=== PATIENT | female | born 1990 | race Two or more races ===

== ENCOUNTER 2017-07-01 23:45 | Inpatient (IN) | payer OTHER ==
[2017-07-02] MEDS ORDERED: DEXTROSE 5%-LACTATED RINGERS 1,000 ML IV SCH ×2 (00:30→02:00)
[2017-07-02 01:37] VITALS: BMI 30.2
[2017-07-02 01:53] LABS: BASO % 0.6 % (0-2.0); EOS % 0.5 % (0-4.5); HEMATOCRIT 28.1 % (32.4-45.2); HEMOGLOBIN 9.3 GM/dL (10.7-15.3); MCH 25.4 pg (25.7-33.7); MEAN CELL VOLUME 77.1 fl (80-96); MEAN PLT VOLUME 8.4 fl (7.5-11.1); MONO % 6.6 % (3.8-10.2); NEUT % 71.3 % (42.8-82.8); PLATELET COUNT 289 K/MM3 (134-434); RBC 3.64 M/mm3 (3.60-5.2); WHITE BLOOD COUNT 6.1 K/mm3 (4.0-10.0)
[2017-07-02 02:12] LABS: INR 0.83 (0.82-1.09); PROTHROMBIN TIME (PATIENT) 9.4 SEC (9.98-11.88)
[2017-07-02 02:39] LABS: ANION GAP 11 (8-16); BLOOD UREA NITROGEN 13 mg/dL (7-18); CALCIUM 8.2 mg/dL (8.5-10.1); CHLORIDE 107 mmol/L (98-107); CO2 22 mmol/L (21-32); CREATININE 0.6 mg/dL (0.55-1.02); GLUCOSE,RANDOM 93 mg/dL (74-106); POTASSIUM 3.9 mmol/L (3.5-5.1); SODIUM 140 mmol/L (136-145)
[2017-07-02] MEDS ORDERED: PROMETHAZINE HCL 25 MG/1 ML VIAL IVPUSH ONE (06:30)
[2017-07-02] MEDS ORDERED: BUTORPHANOL TARTRATE 1 MG/ML VIAL IVPUSH ONE (06:30)
--- NOTE | 2017-07-02 08:08 | HP ---
Past Medical History - Primary Care Physician PCP:: Jian Lloyd - Admission Chief Complaint: 40.5 weeks .rom, labor History of Present Illness: 26 yo f g 1 p0 , edc by sono 06/27/17 , 40.5 weeks, c/o rom since 11 pm 07/01/17 , clear fluid , cx 2 cm 80 vx -2 mr, clear , fhr cat 1, contraction ,mild .low intensity q 2 min History Source: Patient Limitations to Obtaining History: Language Barrier - Past Medical History ...: 1 ...Para: 0 ...Term: 0 ...: 0 ...Spon : 0 ...Induced : 0 ...Multiple Gestation: 0 ...LMP: 09/20/16 ... Weeks Gestation by Dates: 40.5 ...EDC by Dates: 06/27/17 ...EDC by Sono: 06/27/17 Heme/Onc: Yes: Anemia - Past Surgical History Hx Myomectomy: No Hx Transabdominal Cerclage: No Additional Surgical History: hx of positve FFN, recived betamethasone - Smoking History Smoking history: Never smoked Have you smoked in the past 12 months: No - Alcohol/Substance Use Hx Alcohol Use: No Home Medications - Allergies Allergies/Adverse Reactions: Allergies Allergy/AdvReac Type Severity Reaction Status Date / Time No Known Allergies Allergy Verified 04/06/17 13:31 - Home Medications Home Medications: Ambulatory Orders Ferrous Sulfate [Iron] 1 tab PO DAILY 04/06/17 Vit 108/Iron/Folic AC [ One Tablet] 1 tab PO DAILY 04/06/17 Review of Systems - Review of Systems Constitutional: reports: No Symptoms Eyes: reports: No Symptoms HENT: reports: No Symptoms Neck: reports: No Symptoms Cardiovascular: reports: No Symptoms Respiratory: reports: No Symptoms Gastrointestinal: reports: No Symptoms Genitourinary: reports: No Symptoms Breasts: reports: No Symptoms Reported Musculoskeletal: reports: No Symptoms Integumentary: reports: No Symptoms Neurological: reports: No Symptoms Endocrine: reports: No Symptoms Psychiatric: reports: No Symptoms Physical Exam - Maternity Vital Signs: Vital Signs Temperature 98.1 F 07/02/17 07:00 Pulse Rate 75 07/02/17 07:00 Respiratory Rate 20 07/02/17 07:00 Blood Pressure 118/68 07/02/17 07:00 O2 Sat by Pulse Oximetry (%) Constitutional: Yes: Well Nourished, No Distress, Calm Eyes: Yes: WNL, Conjunctiva Clear, EOM Intact HENT: Yes: WNL, Atraumatic, Normocephalic Neck: Yes: WNL, Supple, Trachea Midline Cardiovascular: Yes: WNL, Regular Rate and Rhythm Breast(s): Yes: WNL - Abdominal Exam/OB Fundal Height: 40 Number of Fetuses: Single Presentation: Vertex Contractions: Yes Regularity: Regular Intensity: Mild Monitor Mode: External Heart Rate Location: [facility] Category: I Accelerations: Uniform Decelerations: None - Vaginal Exam/OB Vaginal Bleediing: No Speculum Exam: Yes (clear fluid, nitrazine positve) Dilatation (cm): 2 to 3 Effacement (%): 80 Amniotic Membrane Status: Ruptured Nitrazine Test: Positive Amniotic Fluid: Yes: Clear Presentation: Vertex/Position Station: -2 - Physical Exam Musculoskeletal: Yes: WNL Extremities: Yes: WNL Edema: LLE: Trace, RLE: Trace Deep Tendon Reflex Grade: Normal +2 - Labs Lab Results: CBC, BMP 07/02/17 01:15 07/02/17 01:15 Hemorrhage Risk Assessment - Risk Factors Medium Risk Factors: Yes: None High Risk Factors: Yes: None Risk Score: 1 Risk Level: Medium Risk Problem List - Problems (1) Post term over 40 weeks Code(s): O48.0 - POST-TERM (2) membrane rupture Code(s): TJE6985 - Assessment/Plan plan admit, fhm, pain management
[2017-07-02] MEDS ORDERED: OXYTOCIN 15 UNITS/ LR 250 ML 250 ML IVPB SCH (08:15)
[2017-07-02] MEDS ORDERED: PROMETHAZINE HCL 25 MG/1 ML VIAL ONE (11:09)
[2017-07-02] MEDS ORDERED: BUTORPHANOL TARTRATE 1 MG/ML VIAL ONE ×2 (11:09)
[2017-07-02] MEDS ORDERED: OXYTOCIN 30 UNITS in 0.9% NS 30 UNIT/500 ML INFUS.BAG IVPB ONE (14:53)
--- NOTE | 2017-07-02 15:09 | PN ---
Progress Note (short form) - Note Progress Note: cx 7 cm 80 vx 0 mr , fhr cat 1 Problem List - Problems (1) Post term over 40 weeks Code(s): O48.0 - POST-TERM (2) membrane rupture Code(s): IXM7796 -
[2017-07-02] MEDS ORDERED: OXYTOCIN 15 UNITS in 0.9% NS 15 UNIT/250 ML INFUS.BAG IVPB SCH (15:15)
[2017-07-02] MEDS ORDERED: OXYTOCIN IV SCH (16:45)
[2017-07-02] MEDS ORDERED: SODIUM CHLORIDE IV SCH (16:45)
[2017-07-02] MEDS ORDERED: BENZOCAINE 28 GM HEMORRHOIDAL OINTMENT TP PRN (18:03)
[2017-07-02] MEDS ORDERED: BENZOCAINE 20% 57 GM BOTTLE TP PRN (18:03)
[2017-07-02] MEDS ORDERED: BISACODYL 10 MG SUPP.RECT RC PRN (18:03)
[2017-07-02] MEDS ORDERED: ACETAMINOPHEN 325 MG TABLET (FP) PO PRN (18:03)
[2017-07-02] MEDS ORDERED: METHYLERGONOVINE MALEATE 0.2 MG/1 ML AMP IM PRN (18:03)
[2017-07-02] MEDS ORDERED: oxyCODONE HCL 5 MG TABLET PO PRN (18:03)
[2017-07-02] MEDS ORDERED: IBUPROFEN 600 MG TABLET (FP) PO PRN (18:03)
[2017-07-02] MEDS ORDERED: WITCH HAZEL 50% (TUCKS) 40 PAD/JAR PAD TP PRN (18:03)
[2017-07-02] MEDS ORDERED: OXYTOCIN 20 UNITS in 0.9% NS 20 UNIT/1,000 ML INFUS.BAG IV SCH (18:15)
[2017-07-02] MEDS ORDERED: D5W-LR W/ 20 UNITS OXYTOCIN 20 UNIT/1,000 ML INFUS.BAG IV SCH (18:15)
[2017-07-02] MEDS: FERROUS SO4 325 MG TABLET (FP) PO SCH (22:55)
--- NOTE | 2017-07-03 07:52 | PN ---
Post Progress Note - Subjective Subjective: no complains except cramps Post Day: 1 Type of Delivery: Vital Signs: Vital Signs Temperature 97.9 F 07/03/17 04:00 Pulse Rate 89 07/03/17 04:00 Respiratory Rate 18 07/03/17 04:00 Blood Pressure 104/64 07/03/17 04:00 O2 Sat by Pulse Oximetry (%) Breast Exam: Yes: Soft, Other (BF ). No: Engorged Uterus: Yes: Fundus Firm, Fundus below umbilicus Lochia: Yes: Rubra Lochia, amount: Moderate Extremities: Yes: Calves non-tender Perineum: Yes: Episiotomy (healing ) Activity: Ambulating - Labs Labs: CBC WBC 6.1 K/mm3 (4.0-10.0) 07/02/17 01:15 RBC 3.64 M/mm3 (3.60-5.2) D 07/02/17 01:15 Hgb 9.3 GM/dL (10.7-15.3) L D 07/02/17 01:15 Hct 28.1 % (32.4-45.2) L D 07/02/17 01:15 MCV 77.1 fl (80-96) L 07/02/17 01:15 MCH 25.4 pg (25.7-33.7) L 07/02/17 01:15 MCHC 33.0 g/dl (32.0-36.0) 07/02/17 01:15 RDW 16.0 % (11.6-15.6) H 07/02/17 01:15 Plt Count 289 K/MM3 (134-434) 07/02/17 01:15 MPV 8.4 fl (7.5-11.1) D 07/02/17 01:15 Neutrophils % 71.3 % (42.8-82.8) D 07/02/17 01:15 Lymphocytes % 21.0 % (8-40) D 07/02/17 01:15 Monocytes % 6.6 % (3.8-10.2) 07/02/17 01:15 Eosinophils % 0.5 % (0-4.5) 07/02/17 01:15 Basophils % 0.6 % (0-2.0) 07/02/17 01:15 Assessment/Plan pp stable, anemia asymptomatic plan cbc today discharge tomorrow.
[2017-07-03 07:55] LABS: BASO % 0.4 % (0-2.0); EOS % 0.1 % (0-4.5); HEMATOCRIT 22.3 % (32.4-45.2); HEMOGLOBIN 7.2 GM/dL (10.7-15.3); LYMPH % 14.4 % (8-40); MCH 25.4 pg (25.7-33.7); MCHC 32.5 g/dl (32.0-36.0); MEAN CELL VOLUME 78.1 fl (80-96); MEAN PLT VOLUME 8.1 fl (7.5-11.1); MONO % 7.3 % (3.8-10.2); NEUT % 77.8 % (42.8-82.8); PLATELET COUNT 248 K/MM3 (134-434); RBC 2.85 M/mm3 (3.60-5.2); WHITE BLOOD COUNT 11.8 K/mm3 (4.0-10.0)
[2017-07-03] MEDS: FERROUS SO4 325 MG TABLET (FP) PO SCH ×2 (09:13→22:53)
[2017-07-03] MEDS: PRENATAL VITAMINS W/ FOLIC ACID TABLET (FP) PO SCH (09:13)
[2017-07-03] MEDS ORDERED: SENNOSIDES/DOCUSATE COMBO (SENNA PLUS) TABLET (UD) PO PRN (22:00)
[2017-07-04 08:22] VITALS: BP 119/73; PULSE 90; TEMP 98.4
[2017-07-04] MEDS: FERROUS SO4 325 MG TABLET (FP) PO SCH (10:06)
[2017-07-04] MEDS: PRENATAL VITAMINS W/ FOLIC ACID TABLET (FP) PO SCH (10:07)
--- NOTE | 2017-07-04 10:21 | PN ---
Post Progress Note - Subjective Subjective: no c/o dizziness, or headache , or sob Post Day: 2 Type of Delivery: Vital Signs: Vital Signs Temperature 98.4 F 07/04/17 08:19 Pulse Rate 90 07/04/17 08:19 Respiratory Rate 20 07/04/17 08:19 Blood Pressure 119/73 07/04/17 08:19 O2 Sat by Pulse Oximetry (%) Breast Exam: Yes: Soft, Engorged Uterus: Yes: Fundus Firm, Fundus below umbilicus, Non-tender Lochia: Yes: Rubra Lochia, amount: Moderate Extremities: Yes: Calves non-tender Perineum: Yes: Episiotomy (healing, no c/o perineal soreness ) Activity: Ambulating - Labs Labs: CBC WBC 11.8 K/mm3 (4.0-10.0) H D 07/03/17 07:00 RBC 2.85 M/mm3 (3.60-5.2) L D 07/03/17 07:00 Hgb 7.2 GM/dL (10.7-15.3) L D 07/03/17 07:00 Hct 22.3 % (32.4-45.2) L D 07/03/17 07:00 MCV 78.1 fl (80-96) L 07/03/17 07:00 MCH 25.4 pg (25.7-33.7) L 07/03/17 07:00 MCHC 32.5 g/dl (32.0-36.0) 07/03/17 07:00 RDW 16.0 % (11.6-15.6) H 07/03/17 07:00 Plt Count 248 K/MM3 (134-434) 07/03/17 07:00 MPV 8.1 fl (7.5-11.1) 07/03/17 07:00 Neutrophils % 77.8 % (42.8-82.8) 07/03/17 07:00 Lymphocytes % 14.4 % (8-40) D 07/03/17 07:00 Monocytes % 7.3 % (3.8-10.2) 07/03/17 07:00 Eosinophils % 0.1 % (0-4.5) 07/03/17 07:00 Basophils % 0.4 % (0-2.0) 07/03/17 07:00 Assessment/Plan pp anemia , hemodynamically stable discuss blood transfusion versus expectant management with po iron, pnv, high iron diet .r/b/a informed pt declined transfusion Discharge today
--- NOTE | 2017-07-06 09:21 | DS ---
Physical Exam-ARTIFICIAL CANDY MAKER Vital Signs: Vital Signs Temperature 98.4 F 07/04/17 08:19 Pulse Rate 90 07/04/17 08:19 Respiratory Rate 20 07/04/17 08:19 Blood Pressure 119/73 07/04/17 08:19 O2 Sat by Pulse Oximetry (%) ....Post : Yes: Uterus firm, Uterus non-tender, Slight lochia rubra Edema: LLE: Trace, RLE: Trace Labs: CBC, BMP 07/03/17 07:00 07/02/17 01:15 Delivery - Delivery Vaginal Delivery: Spontaneous (no complication) Type of Anesthesia: Local Episiotomy/Laceration: Left Mediolateral EBL (cc): 300 Delivery, Single - Stages of Labor Date 1st Stage Initiatied: 07/02/17 Time 1st Stage Initiated: 08:30 Date 2nd Stage Initiated: 07/02/17 Time 2nd Stage Initiated: 17:00 Date of Delivery: 07/02/17 Time of Delivery: 17:42 Time Placenta Delivered: 17:55 Placenta: Yes: Spontaneous - Condition of Infant Tailor Men'S Ready To Wear/Hand Umbrella Tipper Present: No Infant Gender: Female Weight: 7 lb Position: Left, OA Total Hours ROM (Hrs/Mins): 18h 55min - 1 Minute Total Score: 9 5 Minutes Total Score: 9 - [place] Feeding Plan Initial Plan: Elected not to breastfeed exclusively throughout hospitalization Discharge Summary Reason For Visit: LABOR Procedures: Principal: Hospital Course: anemia Condition: Stable - Instructions Diet, Activity, Other Instructions: Discharge Instructions * Out of Bed * * Regular Diet, High Iron diet * Gema Care * Avoid sex for 6 weeks If you experience excessive bleeding or fever over 101 degrees, call doctor, the clinic or go to the Emergency Room. Referrals: [facility] (Edda Koch) [Outside] Disposition: HOME - Home Medications Comprehensive Discharge Medication List: Ambulatory Orders Ferrous Sulfate [Iron] 1 tab PO DAILY 04/06/17 Vit 108/Iron/Folic AC [ One Tablet] 1 tab PO DAILY 04/06/17 Acetaminophen [Tylenol .Regular Strength -] 650 mg PO Q3H PRN tablet 07/04/17 Benzocaine [Americaine 20% [place] -] 1 spray TP PRN PRN bottle 07/04/17 Ferrous Sulfate [Feosol] 325 mg PO BID #60 tab 07/04/17 Ibuprofen [Motrin -] 200 mg PO Q4H PRN tablet 07/04/17 Vitamins (Sjr) - 1 tab PO DAILY #30 tablet 07/04/17 Witch [place] 50% (Tariks) [Tucks Pads -] 1 pad TP PRN PRN pad 07/04/17
== END 2017-07-04 11:25 | disposition home or self-care (01) | DRG 560 ==
LOC: JDEL 23:45 → JLDR 07-02 00:30 → J3W 07-02 21:37
PROVIDERS: ADMIT Obstetrics & Gynecology; ATTEND Obstetrics & Gynecology
PROC: 10E0XZZ Delivery of Products of Conception, External Approach (ICD-10-PCS; principal; 2017-07-02)
PROC: 0W8NXZZ Division of Female Perineum, External Approach (ICD-10-PCS; 2017-07-02)
DX: O48.0 Post-term pregnancy (principal); O99.013 Anemia complicating pregnancy, third trimester; D64.9 Anemia, unspecified; Z3A.40 40 weeks gestation of pregnancy; Z37.0 Single live birth
CPT/HCPCS: 36415; 59409; 80048; 85025; 85610; 85730; 86593; 86850; 86900; 86901

== ENCOUNTER 2018-12-26 17:50 | Inpatient (IN) | payer OTHER ==
[2018-12-26] MEDS ORDERED: LACTATED RINGERS SOLUTION 1,000 ML IV SCH (18:20)
[2018-12-26] MEDS ORDERED: AMPICILLIN SODIUM 2 GM VIAL IVPB ONE (18:20)
[2018-12-26] MEDS ORDERED: OXYTOCIN 20 UNITS in 0.9% NS 20 UNIT/1,000 ML INFUS.BAG IV ONE (18:24)
[2018-12-26] MEDS ORDERED: AMPICILLIN SODIUM 2 GM VIAL ONE (18:25)
[2018-12-26 18:36] VITALS: BMI 29.0
[2018-12-26] MEDS ORDERED: LIDOCAINE HCL 1% PRESERVATIVE FREE - 30ML VIAL ONE (18:48)
[2018-12-26] MEDS ORDERED: BENZOCAINE 20% 57 GM BOTTLE TP PRN (19:28)
[2018-12-26] MEDS ORDERED: METHYLERGONOVINE MALEATE 0.2 MG/1 ML AMP IM ONE (19:28)
[2018-12-26] MEDS ORDERED: WITCH HAZEL 50% (TUCKS) 40 PAD/JAR PAD TP PRN (19:28)
[2018-12-26] MEDS ORDERED: ACETAMINOPHEN 325 MG TABLET (FP) PO PRN (19:28)
[2018-12-26] MEDS ORDERED: BISACODYL 10 MG SUPP.RECT RC PRN (19:28)
[2018-12-26] MEDS ORDERED: BENZOCAINE 28 GM HEMORRHOIDAL OINTMENT TP PRN (19:28)
[2018-12-26] MEDS ORDERED: MISOPROSTOL 100 MCG TABLET PV ONE (19:30)
[2018-12-26] MEDS ORDERED: OXYTOCIN 20 UNITS in 0.9% NS 20 UNIT/1,000 ML INFUS.BAG IV SCH (19:30)
--- NOTE | 2018-12-26 19:37 | HP ---
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: Alzheimer's, CVA, Dementia, Migraine, Multiple Sclerosis, Peripheral Neuropathy, Parkinson's, Seizure, Syncope, TIA, Vertigo, Other Cardiovascular: No: AFIB, Aneurysm, Aortic Insufficiency, Aortic Stenosis, CAD, CHF, Deep Vein Thrombosis, HTN, Hyperlipdemia, [place], Mitral Insufficiency, Mitral Stenosis, Murmur, Pulmonary Hypertension, Other Pulmonary: No: Asthma, Bronchitis, Cancer, COPD, O2 Dependent, Pneumonia, Previously Intubated, Pulmonary Embolus, Pulmonary Fibrosis, Sleep Apnea, Other Gastrointestinal: No: Ascites, Cancer, Constipation, Crohn's Disease, Diverticulitis, Diverticulosis, Esophageal Varices, Gastritis, GERD, GI Bleed, Hemorrhoids, Hiatal Hernia, Inflamatory Bowel Disease, Irritable Bowel Disease, Pancreatitis, Peptic Ulcer Disease, Ulcerative Colitis, Other Hepatobiliary: No: Cirrhosis, Cholelithiasis, Cholecystitis, Choledocholithiasis , Hepatitis A, Hepatitis B, Hepatitis C, Other Renal/: No: Renal Failure, Renal Inusuff, BPH, Cancer, Hematuria, Hemodialysis , Neurogenic Bladder, Renal Calculi, UTI, Other Reproductive: No: Ectopic , Endometriosis, Fibroids, PID, Polycystic Ovary Syndrome, Postmenopausal, Other ...: 2 ...Para: 1 ...Term: 1 ...: 0 ...Spon : 0 ...Induced : 0 ...Multiple Gestation: 0 ...LMP: 03/20/18 ... Weeks Gestation by Dates: 40.1 ...EDC by Dates: 12/25/18 ...EDC by Sono: 12/25/18 Heme/Onc: Yes: Anemia. No: B12 Deficiency, Bleeding Disorder, Cancer, Current Chemotherapy, Current Radiation Therapy, Hemochromatosis, Hypercoaguable State, Myeloproliferative Synd, Sickle Cell Disease, Sickle Cell Trait, Thrombocytopenia, Other Infectious Disease: No: AIDS, C-Diff, Herpes Zoster, HIV, MRSA, STD's, Tuberculosis, VREF, Other Psych: No: Addictions, Anxiety, Bipolar, Depression, Panic, Psychosis, Schizophrenia, Other Musculoskeletal: No: Bursitis, Chronic low back pain, Hemiparesis, Hemiplegia, Osteoarthritis, Paraplegia, Other Rheumatology: No: Fibromyalgia, Gout, Lupus, Rheumatoid Arthritis, Sarcoidosis, Vasculitis, Other ENT: No: Allergic Rhinitis, Sinusitis, Other Endocrine: No: [place]'s Disease, Lit's Disease, Diabetes Insipidus, Diabetes Mellitus, Hyperparathyroidism, Hyperthyroidism, Hypothyroidism, Osteopenia, SIADH, Other Dermatology: No: Basal Cell, Cellulitis, Eczema, Melanoma, Psoriasis, Squamous Cell, Other - Past Surgical History Past Surgical History: No: None, AAA Repair, AICD, Amputation, Appendectomy, Arthrosocopy, AV Fistula/Graft, Bariatric Surgery, Breast Biopsy, Bypass, CABG, Carotid Endarterectomy, Cataract Removal, Cholecystectomy, Colectomy, Colonoscopy, Colostomy, Craniotomy, , Cystectomy, Hernia Repair, Hysterectomy, Ileal Conduit, Ileosotomy, Joint Replacement, Kidney Transplant, Laminectomy, Liver Transplant, Mastectomy, Nephrectomy, Oopherectomy, Orchiectomy, Permanent Pacemaker, Prostatectomy, Splenectomy, Stent, Thoracotomy , TURP, Tonsillectomy, Tubal Ligation, Upper Endoscopy, Valve Replacement, Vasectomy, Vein Stripping/Ligation Hx Myomectomy: No Hx Transabdominal Cerclage: No - Smoking History Smoking history: Never smoked Have you smoked in the past 12 months: No - Alcohol/Substance Use Hx Alcohol Use: No History of Substance Use: reports: None Home Medications - Allergies Allergies/Adverse Reactions: Allergies Allergy/AdvReac Type Severity Reaction Status Date / Time No Known Allergies Allergy Verified 12/26/18 18:26 - Home Medications Home Medications: Ambulatory Orders Ferrous Sulfate [Iron] 1 tab PO DAILY 04/06/17 Vitamins (Sjr) - 1 tab PO DAILY #30 tablet 07/04/17 Review of Systems - Review of Systems Constitutional: denies: No Symptoms, Chills, Diaphoresis, Fever, Lethargy, Loss of Appetite, Malaise, Night Sweats, Unintentional Wgt. Loss, Weakness, Other Eyes: denies: No Symptoms, Blind Spots, Blurred Vision, Double Vision, Eye Pain , Floaters, Photophobia, Recent Change in Vision, Other HENT: denies: No Symptoms, Difficult Swallowing, Ear Discharge, Ear Pain, Epistaxis, Gingival Bleeding, Hearing Loss, Mouth Swelling, Nasal Congestion, Ocular Prosthesis, Throat Pain, Toothache, Ringing in Ears, Other Neck: denies: No Symptoms, Decreased ROM, Lumps, Pain on Movement, Stiffness, Swollen Glands, Tenderness, Other Cardiovascular: denies: No Symptoms, Chest Pain, Edema, Palpitations, Shortness of Breath, Other Respiratory: denies: No Symptoms, Cough, Exercise Intolerance, Hemoptysis, Orthopnea, PND, Snoring, SOB, SOB on Exertion, Wheezing, Other Gastrointestinal: denies: No Symptoms, Abdominal Pain, Bloating, Constipation, Diarrhea, Dysphagia, Indigestion, Melena, Nausea, Rectal Bleeding, Vomiting, Vomiting Blood, Other Genitourinary: denies: No Symptoms, Burning, Discharge, Dysuria, Flank Pain, Frequency, Hematuria, Incontinence, Lesions, Menses, Pain, Testicular Mass, Testicular Pain, Testicular Swelling, Urgency, Vaginal Bleeding, Other Breasts: denies: No Symptoms Reported, See HPI, Breast Implants, Discharge from Nipple, Lumps, Pain, Skin Changes, Other Musculoskeletal: denies: No Symptoms, Back Pain, Crepitus, Decreased ROM, Extremity Pain, Joint Pain, Joint Swelling, Muscle Pain, Muscle Cramps, Muscle Weakness, Other Integumentary: denies: No Symptoms, Blister, Bruising, Change in Color, Eczema, Erythema, Incision, Lesions, Lump, Pallor, Pruritis, Rash, Wound, Other Neurological: denies: No Symptoms, Change in LOC, Change in Speech, Confusion, Dizziness, Headache, Incoordination, Numbness, Parasthesia, Pre-Existing Deficit , Seizure, Syncope, Tremors, Unsteady Gait, Weakness, Other Endocrine: denies: No Symptoms, Excessive Sweating, Flushing, Increased Hunger, Increased Thirst, Intolerance to Cold, Intolerance to Heat, Unexplained Weight Gain, Unexplained Weight Loss, Other Hematology/Lymphatic: denies: No Symptoms, Easily Bruised, Excessive Bleeding, Swollen Glands, Other Psychiatric: denies: No Symptoms, Altered Sleep Pattern, Anxiety, Depression, Hallucinations, Panic, Paranoia, Suicidal, Other Physical Exam - Maternity Vital Signs: Vital Signs Temperature 97.3 F L 12/26/18 18:30 Pulse Rate 74 12/26/18 18:30 Respiratory Rate 18 12/26/18 18:30 Blood Pressure 111/73 12/26/18 18:30 O2 Sat by Pulse Oximetry (%) Constitutional: Yes: Well Nourished HENT: Yes: Atraumatic, Normocephalic Neck: Yes: Supple Cardiovascular: Yes: Regular Rate and Rhythm Breast(s): Yes: Other (deferred) - Abdominal Exam/OB Presentation: Vertex Contractions: Yes Regularity: Regular Intensity: Strong Monitor Mode: External Heart Rate (range): 130 Category: I Accelerations: Uniform Decelerations: None - Vaginal Exam/OB Vaginal Bleediing: No Speculum Exam: No Presentation: Vertex/Position Station: 0 - Physical Exam Musculoskeletal: Yes: WNL Extremities: Yes: WNL Edema: LLE: Trace, RLE: Trace Integumentary: Yes: WNL ...Motor Strength: WNL Psychiatric: Yes: Alert, Oriented - Labs Lab Results: ordered Imaging - Results Ultrasound: Report Reviewed Assessment/Plan 28 y/o @ 40+wks, fully dilated ready to deliver -Expectant management -IV abx -Anticipate VD
--- NOTE | 2018-12-26 19:42 | PN ---
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 No nuchal cord present and compound left hand. Shoulders delivered spontaneously followed by the rest of the body. suctioned at delivery and delayed umbilical cord clamping. Samples for blood obtained. Placenta delivered spontaneously and intact, 3 VC. Fundus with mild atony and misoprostol 1000mcg SD administered. rectal exam WNL. 2nd degree laceration repaired with 3.0 polysorb in standard fashion. Excellent hemostasis and re- approximation noted. Methergine administered prophylactically. Sponge/ instrument count correct x 2 and confirmed by nurse.
[2018-12-26 20:51] LABS: BASO % 0.3 % (0-2.0); EOS % 0.1 % (0-4.5); HEMATOCRIT 30.3 % (32.4-45.2); HEMOGLOBIN 9.2 GM/dL (10.7-15.3); LYMPH % 4.3 % (8-40); MCH 23.1 pg (25.7-33.7); MCHC 30.4 g/dl (32.0-36.0); MEAN CELL VOLUME 76.1 fl (80-96); MEAN PLT VOLUME 7.4 fl (7.5-11.1); MONO % 3.8 % (3.8-10.2); NEUT % 91.5 % (42.8-82.8); PLATELET COUNT 334 K/MM3 (134-434); RBC 3.98 M/mm3 (3.60-5.2); RDW 29.3 % (11.6-15.6)
[2018-12-26 21:05] LABS: INR 0.88 (0.83-1.09); PROTHROMBIN TIME (PATIENT) 10.4 SEC (9.7-13.0)
[2018-12-26 21:08] LABS: ACTIVATED PTT 23.8 SECONDS (25.2-36.5)
[2018-12-26 21:20] LABS: BLOOD UREA NITROGEN 12.1 mg/dL (7-18); CREATININE 0.6 mg/dL (0.55-1.3); POTASSIUM 4.7 mmol/L (3.5-5.1)
[2018-12-26] MEDS: METHYLERGONOVINE MALEATE 0.2 MG TABLET (FP) PO SCH ×2 (21:52→23:34)
[2018-12-26 22:17] LABS: ANISOCYTOSIS 1+; MACROCYTOSIS 1+; OVALOCYTE 1+; PLATELET ESTIMATE NORMAL
[2018-12-27] MEDS: IBUPROFEN 600 MG TABLET (FP) PO PRN ×2 (04:18→23:52)
[2018-12-27] MEDS: METHYLERGONOVINE MALEATE 0.2 MG TABLET (FP) PO SCH ×6 (04:18→23:52)
[2018-12-27] MEDS ORDERED: OXYTOCIN 20 UNITS in 0.9% NS 20 UNIT/1,000 ML INFUS.BAG IV ONE (06:29)
[2018-12-27 08:16] LABS: BASO % 0.3 % (0-2.0); EOS % 0.1 % (0-4.5); HEMATOCRIT 24.6 % (32.4-45.2); HEMOGLOBIN 7.6 GM/dL (10.7-15.3); LYMPH % 13.9 % (8-40); MCH 23.7 pg (25.7-33.7); MEAN CELL VOLUME 76.6 fl (80-96); MEAN PLT VOLUME 7.3 fl (7.5-11.1); MONO % 7.4 % (3.8-10.2); NEUT % 78.3 % (42.8-82.8); PLATELET COUNT 265 K/MM3 (134-434); RBC 3.22 M/mm3 (3.60-5.2); RDW 30.3 % (11.6-15.6); WHITE BLOOD COUNT 8.6 K/mm3 (4.0-10.0)
--- NOTE | 2018-12-27 08:16 | PN ---
Post Progress Note - Subjective Subjective: Ambulating, breast feeding, lochia decreased, voiding Post Day: 1 Type of Delivery: Vital Signs: Vital Signs Temperature 98.6 F 12/27/18 05:00 Pulse Rate 72 12/27/18 05:00 Respiratory Rate 20 12/27/18 05:00 Blood Pressure 112/69 12/27/18 05:00 O2 Sat by Pulse Oximetry (%) 100 12/26/18 20:30 Breast Exam: Yes: Other Uterus: Yes: Fundus Firm Abdomen/GI: Yes: Abdomen soft Lochia, amount: Small Extremities: Yes: Calves non-tender Activity: Ambulating - Labs Labs: CBC WBC 15.0 K/mm3 (4.0-10.0) H 12/26/18 20:15 RBC 3.98 M/mm3 (3.60-5.2) 12/26/18 20:15 Hgb 9.2 GM/dL (10.7-15.3) L 12/26/18 20:15 Hct 30.3 % (32.4-45.2) L D 12/26/18 20:15 MCV 76.1 fl (80-96) L 12/26/18 20:15 MCH 23.1 pg (25.7-33.7) L 12/26/18 20:15 MCHC 30.4 g/dl (32.0-36.0) L 12/26/18 20:15 RDW 29.3 % (11.6-15.6) H 12/26/18 20:15 Plt Count 334 K/MM3 (134-434) D 12/26/18 20:15 MPV 7.4 fl (7.5-11.1) L 12/26/18 20:15 Absolute Neuts (auto) 13.7 K/mm3 (1.5-8.0) H 12/26/18 20:15 Neutrophils % 91.5 % (42.8-82.8) H 12/26/18 20:15 Neutrophils % (Manual) 91.1 % (42.8-82.8) H 12/26/18 20:15 Band Neutrophils % 4.9 % 12/26/18 20:15 Lymphocytes % 4.3 % (8-40) L D 12/26/18 20:15 Lymphocytes % (Manual) 2.0 % (8-40) L 12/26/18 20:15 Monocytes % 3.8 % (3.8-10.2) 12/26/18 20:15 Monocytes % (Manual) 1 % (3.8-10.2) L 12/26/18 20:15 Eosinophils % 0.1 % (0-4.5) 12/26/18 20:15 Eosinophils % (Manual) 0.0 % (0-4.5) 12/26/18 20:15 Basophils % 0.3 % (0-2.0) 12/26/18 20:15 Basophils % (Manual) 0.0 % (0-2.0) 12/26/18 20:15 Myelocytes % (Man) 0 % (0-2) 12/26/18 20:15 Promyelocytes % (Man) 0 % (0-2) 12/26/18 20:15 Blast Cells % (Manual) 0 % (0-0) 12/26/18 20:15 Nucleated RBC % 0 % (0-0) 12/26/18 20:15 Metamyelocytes 0 % (0-2) 12/26/18 20:15 Hypochromia 0 12/26/18 20:15 Platelet Estimate Normal 12/26/18 20:15 Platelet Comment Present 12/26/18 20:15 Polychromasia 2+ 12/26/18 20:15 Poikilocytosis 1+ 12/26/18 20:15 Anisocytosis 1+ 12/26/18 20:15 Microcytosis 1+ 12/26/18 20:15 Macrocytosis 1+ 12/26/18 20:15 Ovalocytes 1+ 12/26/18 20:15 [place] Cells 1+ 12/26/18 20:15 Assessment/Plan PPD # 1 in stable condition -Continue inpatient care -F/U AM CBC -Encourage ambulation -Anticipate D/C home tomorrow
[2018-12-27] MEDS ORDERED: SENNOSIDES/DOCUSATE COMBO (SENNA PLUS) TABLET (UD) PO PRN (22:00)
[2018-12-28] MEDS: METHYLERGONOVINE MALEATE 0.2 MG TABLET (FP) PO SCH ×2 (03:48→09:36)
[2018-12-28 06:51] LABS: BASO % 0.6 % (0-2.0); EOS % 1.2 % (0-4.5); HEMATOCRIT 24.2 % (32.4-45.2); HEMOGLOBIN 7.5 GM/dL (10.7-15.3); LYMPH % 26.1 % (8-40); MCHC 31.2 g/dl (32.0-36.0); MEAN CELL VOLUME 76.9 fl (80-96); MEAN PLT VOLUME 7.4 fl (7.5-11.1); MONO % 6.5 % (3.8-10.2); NEUT % 65.6 % (42.8-82.8); PLATELET COUNT 288 K/MM3 (134-434); RBC 3.14 M/mm3 (3.60-5.2); RDW 31.4 % (11.6-15.6); WHITE BLOOD COUNT 6.2 K/mm3 (4.0-10.0)
--- NOTE | 2018-12-28 08:40 | PN ---
Post Progress Note - Subjective Subjective: no c/o dizziness Post Day: 2 Type of Delivery: Vital Signs: Vital Signs Temperature 98.4 F 12/27/18 20:00 Pulse Rate 85 12/27/18 20:00 Respiratory Rate 20 12/27/18 20:00 Blood Pressure 96/58 L 12/27/18 20:00 O2 Sat by Pulse Oximetry (%) 100 12/26/18 20:30 Breast Exam: Yes: Soft, Other (bf). No: Engorged Uterus: Yes: Fundus Firm, Fundus below umbilicus, Non-tender Lochia: Yes: Rubra Lochia, amount: Moderate Extremities: Yes: Calves non-tender Perineum: Yes: Laceration (healing. no c/o soreness) Activity: Ambulating - Labs Labs: CBC WBC 6.2 K/mm3 (4.0-10.0) 12/28/18 06:06 RBC 3.14 M/mm3 (3.60-5.2) L 12/28/18 06:06 Hgb 7.5 GM/dL (10.7-15.3) L 12/28/18 06:06 Hct 24.2 % (32.4-45.2) L 12/28/18 06:06 MCV 76.9 fl (80-96) L 12/28/18 06:06 MCH 24.0 pg (25.7-33.7) L 12/28/18 06:06 MCHC 31.2 g/dl (32.0-36.0) L 12/28/18 06:06 RDW 31.4 % (11.6-15.6) H 12/28/18 06:06 Plt Count 288 K/MM3 (134-434) 12/28/18 06:06 MPV 7.4 fl (7.5-11.1) L 12/28/18 06:06 Absolute Neuts (auto) 4.1 K/mm3 (1.5-8.0) 12/28/18 06:06 Neutrophils % 65.6 % (42.8-82.8) 12/28/18 06:06 Neutrophils % (Manual) 91.1 % (42.8-82.8) H 12/26/18 20:15 Band Neutrophils % 4.9 % 12/26/18 20:15 Lymphocytes % 26.1 % (8-40) D 12/28/18 06:06 Lymphocytes % (Manual) 2.0 % (8-40) L 12/26/18 20:15 Monocytes % 6.5 % (3.8-10.2) 12/28/18 06:06 Monocytes % (Manual) 1 % (3.8-10.2) L 12/26/18 20:15 Eosinophils % 1.2 % (0-4.5) D 12/28/18 06:06 Eosinophils % (Manual) 0.0 % (0-4.5) 12/26/18 20:15 Basophils % 0.6 % (0-2.0) 12/28/18 06:06 Basophils % (Manual) 0.0 % (0-2.0) 12/26/18 20:15 Myelocytes % (Man) 0 % (0-2) 12/26/18 20:15 Promyelocytes % (Man) 0 % (0-2) 12/26/18 20:15 Blast Cells % (Manual) 0 % (0-0) 12/26/18 20:15 Nucleated RBC % 0 % (0-0) 12/28/18 06:06 Metamyelocytes 0 % (0-2) 12/26/18 20:15 Hypochromia 0 12/26/18 20:15 Platelet Estimate Normal 12/26/18 20:15 Platelet Comment Present 12/26/18 20:15 Polychromasia 2+ 12/26/18 20:15 Poikilocytosis 1+ 12/26/18 20:15 Anisocytosis 1+ 12/26/18 20:15 Microcytosis 1+ 12/26/18 20:15 Macrocytosis 1+ 12/26/18 20:15 Ovalocytes 1+ 12/26/18 20:15 [place] Cells 1+ 12/26/18 20:15 Problem List - Problems (1) care following vaginal delivery Code(s): Z39.2 - ENCOUNTER FOR ROUTINE FOLLOW-UP Assessment/Plan stable hemodynamically pp anemia counselled discharge today
[2018-12-28 11:04] VITALS: BP 110/60; PULSE 87; TEMP 97.6
== END 2018-12-28 12:40 | disposition home or self-care (01) | DRG 560 ==
LOC: JDEL 17:50 → JLDR 18:20 → J3W 20:42
PROVIDERS: ADMIT Student in an Organized Health Care Education/Training Program; ATTEND Student in an Organized Health Care Education/Training Program
PROC: 0KQM0ZZ Repair Perineum Muscle, Open Approach (ICD-10-PCS; principal; 2018-12-26)
PROC: 10E0XZZ Delivery of Products of Conception, External Approach (ICD-10-PCS; 2018-12-26)
DX: O48.0 Post-term pregnancy (principal); O70.1 Second degree perineal laceration during delivery; Z3A.40 40 weeks gestation of pregnancy; Z37.0 Single live birth
CPT/HCPCS: 36415; 59409; 80048; 85025; 85610; 85730; 86593; 86850; 86900; 86901

== ENCOUNTER 2021-08-20 19:44 | Emergency (ER) | payer OTHER ==
[2021-08-20 20:52] VITALS: BP 102/62; PULSE 110; TEMP 98.7; BMI 25.4
[2021-08-20] MEDS ORDERED: ONDANSETRON 4 MG/2 ML VIAL IM ONE (22:57)
[2021-08-20] MEDS ORDERED: ONDANSETRON 4 MG/2 ML VIAL ONE (23:05)
== END 2021-08-21 00:05 | disposition home or self-care (01) ==
LOC: JER 19:44 → JERFT 19:44
PROC: 3E023GC Introduction of Other Therapeutic Substance into Muscle, Percutaneous Approach (ICD-10-PCS; principal; 2021-08-20)
DX: J09.X2 Influenza due to identified novel influenza A virus with other respiratory manifestations (principal)
CPT/HCPCS: 0241U-QW; 99284-25